=== PATIENT | female | born 1985 | race Caucasian/White ===

== ENCOUNTER 2018-07-20 21:01 | Emergency (ER) | payer SELFPAY ==
[~2018-07-20] VITALS: Ht 170.2 cm; Wt 89.9 kg
[2018-07-20 21:15] VITALS: BP 112/62
--- NOTE | 2018-07-20 22:47 | NUR ---
PT AMBUALTED TO ER BED 06
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
[2018-07-20] MEDS ORDERED: IBUPROFEN 800 MG TAB PO ONE (23:05)
[2018-07-20] MEDS ORDERED: CYCLOBENZAPRINE 10 MG TAB PO ONE (23:05)
[2018-07-21 00:15] VITALS: BP 110/68
--- NOTE | 2018-07-21 00:15 | NUR ---
Patient discharged with v/s stable. Written and verbal after care instructions given and explained. Patient alert, oriented and verbalized understanding of instructions. Ambulatory with steady gait. All questions addressed prior to discharge. ID band removed. Patient advised to follow up with PMD. Rx of Ibuprofen, and Flexeril given. Patient educated on indication of medication including possible reaction and side effects. Opportunity to ask questions provided and answered.
== END 2018-07-21 00:15 | disposition home or self-care (01) ==
LOC: MED 21:01
DX: S16.1XXA Strain of muscle, fascia and tendon at neck level, initial encounter (principal); M25.562 Pain in left knee; M25.552 Pain in left hip; Z88.0 Allergy status to penicillin; V89.2XXA Person injured in unspecified motor-vehicle accident, traffic, initial encounter; Y93.89 Activity, other specified; Y92.89 Other specified places as the place of occurrence of the external cause; Y99.8 Other external cause status
CPT/HCPCS: 99283